=== PATIENT | female | born 1995 | race Caucasian/White ===

== ENCOUNTER 2022-04-29 17:09 | Day surgery (SDC) | payer OTHER ==
[2022-04-29 17:40] VITALS: BMI 26.5
[2022-04-29] MEDS ORDERED: hydrALAZINE 20 MG/ML VIAL SLOW IVP PRN (18:22)
== END 2022-04-29 18:25 | disposition home or self-care (01) ==
LOC: CSHLD/OP 17:09
PROVIDERS: ATTEND Family Medicine
DX: O36.8130 Decreased fetal movements, third trimester, not applicable or unspecified (principal); Z3A.39 39 weeks gestation of pregnancy
CPT/HCPCS: 59025; 99282

== ENCOUNTER 2022-04-30 15:51 | Inpatient (IN) | payer OTHER ==
[2022-05-01] MEDS ORDERED: Bupivacaine/Epinephrine 0.25% 30 ML VIAL ONE (08:00)
[2022-05-01] MEDS ORDERED: Acetaminophen 500 MG TAB PO PRN (09:43)
[2022-05-01] MEDS ORDERED: Diphenoxylate HCl/Atropine Tablet PO PRN (09:43)
[2022-05-01] MEDS ORDERED: HYDROcodone/Acetaminophen 5/325 mg Tablet PO PRN ×2 (09:43→21:58)
[2022-05-01] MEDS ORDERED: Lidocaine 1% (PF) 30 ML VIAL SC PRN (09:43)
[2022-05-01] MEDS ORDERED: Promethazine HCl 25 MG/ML VIAL IM PRN ×3 (09:43→21:58)
[2022-05-01] MEDS ORDERED: Ondansetron PF 4 MG/2 ML Vial IVP PRN ×3 (09:43→21:58)
[2022-05-01] MEDS ORDERED: Carboprost 250 MCG/ML AMP IM PRN (09:43)
[2022-05-01] MEDS ORDERED: hydrALAZINE 20 MG/ML VIAL SLOW IVP PRN ×2 (09:43→21:58)
[2022-05-01] MEDS ORDERED: Misoprostol 200 MCG TAB PR PRN (09:43)
[2022-05-01] MEDS ORDERED: Methylergonovine 0.2 MG/ML VIAL IM PRN (09:43)
[2022-05-01] MEDS ORDERED: Butorphanol Tartrate 1 MG/ML VIAL SLOW IVP PRN (09:43)
[2022-05-01] MEDS ORDERED: Ibuprofen 800 MG TAB PO PRN (09:43)
[2022-05-01] MEDS ORDERED: NS w/ Oxytocin 30 units 500 ML IV SCH ×2 (09:45)
[2022-05-01] MEDS ORDERED: Lactated Ringer's 1,000 ML IV SCH (09:45)
[2022-05-01 10:29] VITALS: BMI 26.5
[2022-05-01 11:01] LABS: Hemoglobin 12.1 g/dL (12.0-15.5); Mean Corpuscular HGB CONC 33.2 g/dL (32.0-36.0); Mean Corpuscular Hemoglobin 29.7 pg (27.0-33.0); Mean Corpuscular Volume 89.2 fl (81.6-98.3); Mean Platelet Volume 12.6 fl (7.4-10.4); Platelet Count 215 10x3/uL (150-450); RBC Distribution Width 13.4 % (11.5-14.5); Red Blood Cell (RBC) Count 4.08 10x6/uL (3.90-5.03); White Blood Cell (WBC) Count 11.5 10x3/uL (3.5-10.5)
[2022-05-01 11:25] LABS: Syphilis Antibody Nonreactive (Nonreactive); Syphilis Antibody Index 0.04 S/CO (<1.00 Non-Reactive)
[2022-05-01 11:36] LABS: SARS-CoV-2 NAA Rapid Test Not Detected (NotDetected)
[2022-05-01 11:44] LABS: HBSAg Index 0.16 S/CO (0-0.99)
[2022-05-01] MEDS ORDERED: Fentanyl 2 mcg/Bup 0.1% Cadd 100 ML ONE (13:05)
[2022-05-01 13:26] LABS: Hep B Surf Ag Non-Reactive S/CO (NonReactive)
[2022-05-01] MEDS ORDERED: Acetaminophen 325 MG TAB PO PRN (13:53)
[2022-05-01] MEDS ORDERED: ePHEDrine Sulfate 50 MG/10 ML VIAL SLOW IVP PRN (13:53)
[2022-05-01] MEDS ORDERED: Naloxone HCl 0.4 mg/ml Vial IVP PRN ×2 (13:53)
[2022-05-01] MEDS ORDERED: diphenhydrAMINE 50 MG/ML VIAL IVP PRN (13:53)
[2022-05-01] MEDS ORDERED: Lactated Ringer's 500 ML IV PRN (13:53)
[2022-05-01] MEDS ORDERED: Moisturizing Cream (Eucerin) 113 GM JAR TOP PRN (13:53)
[2022-05-01] MEDS ORDERED: Fentanyl 2 mcg/Bupivacaine 0.1% Cassette 100 ML EPIDURAL SCH (14:00)
[2022-05-01] MEDS ORDERED: Communication Order-Pharmacy FS SCH (14:00)
[2022-05-01] MEDS ORDERED: Milk Of Magnesia 30 ML UDCUP PO PRN (21:58)
[2022-05-01] MEDS ORDERED: Benzocaine-Menthol 82.5 ML CAN TOP PRN (21:58)
[2022-05-01] MEDS ORDERED: Lanolin Ointment 7 GM TUBE TOP PRN (21:58)
[2022-05-01] MEDS ORDERED: diphenhydrAMINE 25 MG CAP PO PRN (21:58)
[2022-05-01] MEDS ORDERED: Boostrix 0.5 ML (Tdap) VIAL IM ONE (21:58)
[2022-05-01] MEDS ORDERED: Bisacodyl 10 MG SUPP PR PRN (21:58)
[2022-05-01] MEDS: HYDROcodone/Acetaminophen 5/325 mg Tablet PO PRN (22:09)
[2022-05-02] MEDS: Docusate 100 MG CAP PO SCH ×3 (02:05→21:30)
[2022-05-02] MEDS: Ibuprofen 800 MG TAB PO SCH ×4 (02:06→21:30)
[2022-05-02] MEDS: HYDROcodone/Acetaminophen 5/325 mg Tablet PO PRN ×5 (02:07→21:30)
[2022-05-02] MEDS: Ferrous Sulfate 325 MG TAB PO SCH ×2 (07:25→17:01)
[2022-05-02] MEDS: Prenatal Vitamin 1 TAB PO SCH (08:29)
[2022-05-03] MEDS: HYDROcodone/Acetaminophen 5/325 mg Tablet PO PRN ×2 (04:24→14:25)
[2022-05-03] MEDS: Ibuprofen 800 MG TAB PO SCH ×2 (05:44→14:26)
[2022-05-03] MEDS: Ferrous Sulfate 325 MG TAB PO SCH ×2 (08:02→15:16)
[2022-05-03] MEDS: Docusate 100 MG CAP PO SCH (08:45)
[2022-05-03] MEDS: Prenatal Vitamin 1 TAB PO SCH (08:45)
[2022-05-03 20:27] VITALS: BP 121/76; TEMP 98.3
== END 2022-05-03 20:17 | disposition home or self-care (01) | DRG 807 ==
LOC: CSHLD 05-01 08:49 → CSHPP 05-01 22:43
PROVIDERS: ADMIT Family Medicine; ATTEND Family Medicine
PROC: 10D07Z6 Extraction of Products of Conception, Vacuum, Via Natural or Artificial Opening (ICD-10-PCS; principal; 2022-05-01)
PROC: 10907ZC Drainage of Amniotic Fluid, Therapeutic from Products of Conception, Via Natural or Artificial Opening (ICD-10-PCS; 2022-05-01)
PROC: 3E033VJ Introduction of Other Hormone into Peripheral Vein, Percutaneous Approach (ICD-10-PCS; 2022-05-01)
PROC: 0W8NXZZ Division of Female Perineum, External Approach (ICD-10-PCS; 2022-05-01)
PROC: 10H07YZ Insertion of Other Device into Products of Conception, Via Natural or Artificial Opening (ICD-10-PCS; 2022-05-01)
DX: O36.8130 Decreased fetal movements, third trimester, not applicable or unspecified (principal); Z37.0 Single live birth; O76 Abnormality in fetal heart rate and rhythm complicating labor and delivery; Z20.822 Contact with and (suspected) exposure to COVID-19; Z3A.40 40 weeks gestation of pregnancy
CPT/HCPCS: 36415; 51702; 85027; 86780; 86850; 86900; 86901; 87340; J0595; J2590; U0002